=== PATIENT | female | born 1990 | race Caucasian/White ===

== ENCOUNTER 2016-06-28 19:38 | Emergency (ER) | payer MEDICAID | END 2016-06-29 00:18 | disposition home or self-care (01) | LOC: ER 19:38 | CPT/HCPCS: 36415; 80053; 81001; 84439; 84443; 85025; 85610; 87088 ==

== ENCOUNTER 2016-07-12 09:32 | Inpatient (IN) | payer MEDICAID ==
[~2016-07-12] VITALS: Ht 167.6 cm; Wt 96.6 kg
[2016-07-12] MEDS ORDERED: HALOPERIDOL 5 MG/ML VIAL IM PRN (10:05)
[2016-07-12] MEDS ORDERED: LORAZEPAM 2 MG/ML VIAL IM PRN (10:05)
[2016-07-12] MEDS ORDERED: MAG HYDROX 30 ML UDC PO PRN (10:05)
[2016-07-12] MEDS ORDERED: DIPHENHYDRAMINE 50 MG/ML VIAL IM PRN (10:05)
[2016-07-12] MEDS ORDERED: ALU/MAG/SIM 30 ML UDC PO PRN (10:05)
[2016-07-12 15:07] VITALS: BP_SYST 126; RESP 18; TEMP 97.5
[2016-07-12 15:08] VITALS: Ht 167.6 cm; Wt 96.6 kg
[2016-07-12] MEDS ORDERED: *PINK BRACELET XX ONE (15:15)
[2016-07-12] MEDS: NICOTINE 14 MG/24 HR TDSY TRANSDERM SCH (15:44)
[2016-07-12 19:03] VITALS: BP_SYST 137; RESP 18; TEMP 98.7
[2016-07-12] MEDS: *HOME MEDS KEPT IN PHARMACY XX SCH (20:18)
[2016-07-13] MEDS: *HOME MEDS KEPT IN PHARMACY XX SCH ×2 (08:00→20:00)
[2016-07-13] MEDS: NICOTINE 14 MG/24 HR TDSY TRANSDERM SCH (09:00)
[2016-07-13] MEDS: HALOPERIDOL 5 MG TAB PO PRN (09:58)
[2016-07-13] MEDS: LORAZEPAM 2 MG TAB PO PRN (09:58)
[2016-07-13] MEDS: DIPHENHYDRAMINE 50 MG CAP PO PRN (09:58)
[2016-07-13] MEDS: ARIPiprazole 15 MG TAB PO SCH (12:54)
[2016-07-13 14:39] VITALS: BP_SYST 99; RESP 16; TEMP 98
[2016-07-13 19:53] VITALS: BP_SYST 133; RESP 18; TEMP 98.6
[2016-07-13] MEDS: TRAZODONE 50 MG TAB PO PRN (21:46)
[2016-07-14 07:00] VITALS: BP_SYST 125; RESP 20; TEMP 97.5
[2016-07-14] MEDS: *HOME MEDS KEPT IN PHARMACY XX SCH ×2 (08:00→20:26)
[2016-07-14] MEDS: NICOTINE 14 MG/24 HR TDSY TRANSDERM SCH (09:03)
[2016-07-14] MEDS: ARIPiprazole 15 MG TAB PO SCH (09:03)
[2016-07-14 20:10] VITALS: BP_SYST 130; RESP 18; TEMP 98.8
[2016-07-14] MEDS: TRAZODONE 50 MG TAB PO PRN (20:45)
[2016-07-15] MEDS: *HOME MEDS KEPT IN PHARMACY XX SCH ×2 (07:19→20:00)
[2016-07-15] MEDS: NICOTINE 14 MG/24 HR TDSY TRANSDERM SCH (08:46)
[2016-07-15 08:49] VITALS: BP_SYST 129; RESP 17; TEMP 97.5
[2016-07-15] MEDS ORDERED: ARIPiprazole 15 MG TAB PO SCH (09:00)
[2016-07-15 19:00] VITALS: BP_SYST 129; RESP 20; TEMP 98.8
[2016-07-15] MEDS: risperiDONE 2 MG TAB PO SCH (20:48)
[2016-07-15] MEDS: TRAZODONE 50 MG TAB PO PRN (23:16)
[2016-07-16] MEDS: *HOME MEDS KEPT IN PHARMACY XX SCH ×2 (08:25→19:53)
[2016-07-16] MEDS: NICOTINE 14 MG/24 HR TDSY TRANSDERM SCH (09:28)
[2016-07-16 12:05] VITALS: BP_SYST 122; RESP 17; TEMP 97.6
[2016-07-16 19:17] VITALS: BP_SYST 128; RESP 18; TEMP 97.7
[2016-07-16] MEDS: risperiDONE 2 MG TAB PO SCH (20:05)
[2016-07-16] MEDS: TRAZODONE 50 MG TAB PO PRN (21:35)
[2016-07-17] MEDS: ACETAMINOPHEN 325 MG TAB PO PRN ×2 (00:54→20:22)
[2016-07-17] MEDS: *HOME MEDS KEPT IN PHARMACY XX SCH ×2 (07:44→19:46)
[2016-07-17 08:37] VITALS: BP_SYST 117; RESP 18; TEMP 98.6
[2016-07-17] MEDS: NICOTINE 14 MG/24 HR TDSY TRANSDERM SCH (08:55)
[2016-07-17] MEDS: HALOPERIDOL 5 MG TAB PO PRN (11:37)
[2016-07-17] MEDS: LORAZEPAM 2 MG TAB PO PRN (11:37)
[2016-07-17] MEDS: DIPHENHYDRAMINE 50 MG CAP PO PRN (11:37)
[2016-07-17 19:17] VITALS: BP_SYST 129; RESP 18; TEMP 98.6
[2016-07-17] MEDS: risperiDONE 2 MG TAB PO SCH (20:01)
[2016-07-17] MEDS: TRAZODONE 50 MG TAB PO PRN (21:37)
[2016-07-18] MEDS: *HOME MEDS KEPT IN PHARMACY XX SCH ×2 (07:34→20:00)
[2016-07-18] MEDS ORDERED: MISSING DOSE XX ONE (07:35)
[2016-07-18] MEDS: NICOTINE 14 MG/24 HR TDSY TRANSDERM SCH (09:00)
[2016-07-18] MEDS: risperiDONE 2 MG TAB PO SCH ×2 (09:00→21:30)
[2016-07-18 09:41] VITALS: BP_SYST 136; RESP 18; TEMP 97.6
[2016-07-18 19:02] VITALS: BP_SYST 146; RESP 18; TEMP 98.3
[2016-07-18] MEDS: TRAZODONE 50 MG TAB PO PRN (21:33)
[2016-07-19] MEDS: *HOME MEDS KEPT IN PHARMACY XX SCH ×2 (07:31→20:00)
[2016-07-19] MEDS: risperiDONE 2 MG TAB PO SCH ×2 (08:20→21:28)
[2016-07-19] MEDS: NICOTINE 14 MG/24 HR TDSY TRANSDERM SCH (08:21)
[2016-07-19 09:34] VITALS: BP_SYST 132; RESP 16; TEMP 97.8
[2016-07-19 19:30] VITALS: BP_SYST 126; RESP 18; TEMP 98
[2016-07-19] MEDS ORDERED: depakote ER 250 MG TAB PO SCH (21:00)
[2016-07-19] MEDS: depakote ER 250 MG TAB PO SCH (21:28)
[2016-07-19] MEDS: ACETAMINOPHEN 325 MG TAB PO PRN (23:19)
[2016-07-19] MEDS: TRAZODONE 50 MG TAB PO PRN (23:59)
[2016-07-20] MEDS: NICOTINE 14 MG/24 HR TDSY TRANSDERM SCH (09:00)
[2016-07-20] MEDS: *HOME MEDS KEPT IN PHARMACY XX SCH ×2 (09:00→20:00)
[2016-07-20] MEDS: risperiDONE 2 MG TAB PO SCH ×2 (09:08→21:41)
[2016-07-20 12:49] VITALS: BP_SYST 126; RESP 18; TEMP 97.8
[2016-07-20] MEDS: HALOPERIDOL 2 MG TAB PO SCH ×2 (14:00→21:42)
[2016-07-20 19:38] VITALS: BP_SYST 132; RESP 18; TEMP 98.4
[2016-07-20] MEDS: depakote ER 250 MG TAB PO SCH (21:42)
[2016-07-20] MEDS: TRAZODONE 50 MG TAB PO PRN (22:55)
[2016-07-21] MEDS: DIPHENHYDRAMINE 50 MG CAP PO PRN ×2 (03:46→21:12)
[2016-07-21] MEDS: *HOME MEDS KEPT IN PHARMACY XX SCH ×2 (08:00→20:00)
[2016-07-21] MEDS: risperiDONE 2 MG TAB PO SCH ×2 (08:50→21:12)
[2016-07-21] MEDS: NICOTINE 14 MG/24 HR TDSY TRANSDERM SCH (08:50)
[2016-07-21] MEDS: HALOPERIDOL 2 MG TAB PO SCH ×2 (08:50→21:12)
[2016-07-21 10:01] VITALS: BP_SYST 126; RESP 18; TEMP 98.2
[2016-07-21 19:20] VITALS: BP_SYST 131; RESP 18; TEMP 98
[2016-07-21] MEDS: ACETAMINOPHEN 325 MG TAB PO PRN (19:43)
[2016-07-21] MEDS: depakote ER 250 MG TAB PO SCH (21:12)
[2016-07-21] MEDS: TRAZODONE 50 MG TAB PO PRN (22:00)
[2016-07-22 07:00] VITALS: BP_SYST 134; RESP 16; TEMP 98.2
[2016-07-22] MEDS: ACETAMINOPHEN 325 MG TAB PO PRN (08:14)
[2016-07-22] MEDS: risperiDONE 2 MG TAB PO SCH ×2 (11:00→21:00)
[2016-07-22] MEDS: HALOPERIDOL 2 MG TAB PO SCH ×2 (11:00→21:00)
[2016-07-22] MEDS: NICOTINE 14 MG/24 HR TDSY TRANSDERM SCH (11:00)
[2016-07-22 19:03] VITALS: BP_SYST 130; RESP 16; TEMP 98.2
[2016-07-22] MEDS ORDERED: TRAZODONE 100 MG TAB PO PRN (19:40)
[2016-07-22] MEDS: depakote ER 250 MG TAB PO SCH (21:00)
[2016-07-22] MEDS: *HOME MEDS KEPT IN PHARMACY XX SCH ×2 (21:08→21:09)
[2016-07-22] MEDS: LORAZEPAM 2 MG TAB PO PRN (23:42)
[2016-07-22] MEDS: DIPHENHYDRAMINE 50 MG CAP PO PRN (23:42)
[2016-07-23 07:35] VITALS: BP_SYST 129; RESP 18; TEMP 97.9
[2016-07-23] MEDS: *HOME MEDS KEPT IN PHARMACY XX SCH ×2 (08:00→20:00)
[2016-07-23] MEDS: ACETAMINOPHEN 325 MG TAB PO PRN (08:03)
[2016-07-23] MEDS: NICOTINE 14 MG/24 HR TDSY TRANSDERM SCH (09:00)
[2016-07-23] MEDS: depakote ER 250 MG TAB PO SCH (20:10)
[2016-07-23 20:21] VITALS: BP_SYST 132; RESP 16; TEMP 98
[2016-07-23] MEDS: risperiDONE 2 MG TAB PO SCH (21:00)
[2016-07-23] MEDS ORDERED: MISSING DOSE XX ONE (22:20)
[2016-07-24] MEDS: ACETAMINOPHEN 325 MG TAB PO PRN ×3 (00:57→22:37)
[2016-07-24] MEDS: *HOME MEDS KEPT IN PHARMACY XX SCH ×2 (08:00→20:00)
[2016-07-24] MEDS: NICOTINE 14 MG/24 HR TDSY TRANSDERM SCH (08:29)
[2016-07-24 09:29] VITALS: BP_SYST 148; RESP 18; TEMP 97.5
[2016-07-24] MEDS: OXCARBAZEPINE 300 MG TAB PO SCH ×2 (12:00→21:04)
[2016-07-24 19:00] VITALS: BP_SYST 128; RESP 18; TEMP 98.5
[2016-07-24] MEDS: depakote ER 250 MG TAB PO SCH (21:03)
[2016-07-24] MEDS: risperiDONE 2 MG TAB PO SCH (21:04)
[2016-07-24] MEDS: TRAZODONE 50 MG TAB PO PRN (23:49)
[2016-07-25 07:55] VITALS: BP_SYST 129; RESP 18; TEMP 97.5
[2016-07-25] MEDS: *HOME MEDS KEPT IN PHARMACY XX SCH ×2 (08:00→19:31)
[2016-07-25] MEDS: NICOTINE 14 MG/24 HR TDSY TRANSDERM SCH (08:46)
[2016-07-25] MEDS: OXCARBAZEPINE 300 MG TAB PO SCH ×2 (08:46→21:11)
[2016-07-25] MEDS: ACETAMINOPHEN 325 MG TAB PO PRN ×3 (09:30→19:29)
[2016-07-25 20:43] VITALS: BP_SYST 129; RESP 20; TEMP 97.6
[2016-07-25] MEDS ORDERED: MISSING DOSE XX ONE (20:55)
[2016-07-25] MEDS: risperiDONE 2 MG TAB PO SCH (21:11)
[2016-07-25] MEDS: depakote ER 250 MG TAB PO SCH (21:11)
[2016-07-25] MEDS: TRAZODONE 50 MG TAB PO PRN (21:13)
[2016-07-26] MEDS: ACETAMINOPHEN 325 MG TAB PO PRN (01:46)
[2016-07-26] MEDS ORDERED: Ibuprofen 600 MG TAB PO PRN (03:10)
[2016-07-26] MEDS: *HOME MEDS KEPT IN PHARMACY XX SCH (08:00)
[2016-07-26] MEDS: NICOTINE 14 MG/24 HR TDSY TRANSDERM SCH (08:37)
[2016-07-26] MEDS: OXCARBAZEPINE 300 MG TAB PO SCH (08:37)
[2016-07-26 08:46] VITALS: BP_SYST 122; RESP 20; TEMP 97.2
[2016-07-26 09:18] VITALS: BP_SYST 122; RESP 20; TEMP 97.2
[2016-07-26 09:39] VITALS: BP_SYST 122; RESP 20; TEMP 97.2
== END 2016-07-26 12:55 | disposition home or self-care (01) | DRG 885 ==
LOC: PSY 14:19
PROVIDERS: ADMIT Psychiatry & Neurology Psychiatry; ATTEND Psychiatry & Neurology Psychiatry
DX: F25.0 Schizoaffective disorder, bipolar type (principal); K02.9 Dental caries, unspecified
CPT/HCPCS: 80165

== ENCOUNTER 2016-07-28 17:54 | Emergency (ER) | payer MEDICAID | END 2016-07-28 20:20 | LOC: ER 17:54 | DX: F20.0 Paranoid schizophrenia (principal); F32.9 Major depressive disorder, single episode, unspecified; F17.200 Nicotine dependence, unspecified, uncomplicated | CPT/HCPCS: 36415; 80053; 80320; 80329; 84439; 84443; 85025; 85610 ==